=== PATIENT | male | born 1965 | race Caucasian/White ===

== ENCOUNTER 2017-07-19 17:05 | Emergency (ER) | payer SELFPAY ==
--- NOTE | 2017-07-19 17:05 | NUR ---
Pt was brought to ER by [id number] but refused to come in to ER and did not want to be seen in the ER. EMS came to nursing station and stated the pt is in front of ER and refusing to come in. Pt was seen ambulatory next to the ambulance. Myself and Bakari spoke with the pt in [facility] and encouraged him to be seen. Pt stated he just wanted some water because he was thirsty and was provided a bottle of water. Pt denied any medical complaints, any homicidal or suicidal ideation. [facility] [address]
[2017-07-19] MEDS ORDERED: AMBIEN (18:29)
== END 2017-07-19 17:14 | disposition left against medical advice (07) ==
LOC: ER 17:07
DX: Z53.21 Procedure and treatment not carried out due to patient leaving prior to being seen by health care provider (principal)

== ENCOUNTER 2017-07-19 18:18 | Emergency (ER) | payer SELFPAY ==
[~2017-07-19] VITALS: Ht 167.6 cm; Wt 54.4 kg
[2017-07-19] MEDS ORDERED: AMBIEN (18:29)
[2017-07-19] MEDS ORDERED: OLANZAPINE 5 MG TABLET ONE (19:25)
[2017-07-19] MEDS ORDERED: NEOMY/BACITRA/POLYMYXIN B OINT UD PACKET TP ONE ×2 (19:30→20:19)
[2017-07-19] MEDS ORDERED: OLANZAPINE 5 MG TABLET PO ONE (19:30)
--- NOTE | 2017-07-19 19:40 | NUR ---
PT IN ROUTE TO CT IN [facility] WITH TRANSPORTER.
[2017-07-19 19:43] LABS: BASOPHILS % (AUTO) 0.3 % (0.0-2.0); HEMATOCRIT 37.8 % (36.7-47.1); LYMPHOCYTES # (AUTO) 1.4 K/uL (20.0-40.0); LYMPHOCYTES % (AUTO) 12.1 % (20.5-51.5); MEAN CORPUSCULAR HEMOGLOBIN 31.2 uug (23.8-33.4); MEAN CORPUSCULAR HGB CONC 34 g/dL (32.5-36.3); MEAN CORPUSCULAR VOLUME 90.9 fL (73.0-96.2); MONOCYTES # (AUTO) 0.6 K/uL (2.0-10.0); MONOCYTES % (AUTO) 5.5 % (0.0-11.0); NEUTROPHILS # (AUTO) 9.6 K/uL (1.8-8.9); NEUTROPHILS % (AUTO) 82.1 % (38.5-71.5); PLATELET COUNT (AUTO) 324 K/uL (152-348); RED BLOOD CELL COUNT(AUTO) 4.16 MIL/uL (4.06-5.63); WHITE BLOOD COUNT (AUTO) 11.7 K/uL (3.6-10.2)
[2017-07-19 19:49] LABS: CARBON DIOXIDE 24 mmol/L (21-32); CHLORIDE 103 mmol/L (98-107); CREATININE 1.1 mg/dL (0.6-1.3); GLUCOSE 117 mg/dL (74-106); POTASSIUM 3.8 mmol/L (3.5-5.1); UREA NITROGEN, BLOOD 35 mg/dL (7-18)
[2017-07-19 19:53] LABS: ETHANOL < 3 MG/DL (0-0)
[2017-07-19 19:54] LABS: ALANINE AMINOTRANSFERASE 62 U/L (16-63); ALKALINE PHOSPHATASE 102 U/L (50-136); ASPARTATE AMINOTRANSFERASE 56 U/L (15-37); BILIRUBIN,DIRECT 0.1 mg/dL (0.0-0.2); BILIRUBIN,TOTAL 0.5 mg/dL (0.2-1.0); TOTAL PROTEIN, SERUM 8.1 g/dL (6.4-8.2)
[2017-07-19 19:55] LABS: ACETAMINOPHEN < 2.0 ug/mL (10-30)
[2017-07-19 20:04] LABS: THYROID STIMULATING HORMONE 0.856 mIU/mL (0.358-3.740)
--- NOTE | 2017-07-19 22:46 | NUR ---
CALL PLACED TO MAINTENANCE HELPER. WAS TOLD BY TAWNY MORENO TO CALL BACK AFTER MIDNIGHT. SHE IS CURRENTLY OFF. PT IN BED RESTING QUIETLY WITH EYES CLOSED. VSS AND WNL. NO SIGNS OF DISTRESS WITNESSED BY NURSE.
--- NOTE | 2017-07-19 22:55 | NUR ---
SPOKE WITH [facility]. GAVE REPORT OF CASE. HE STATES THAT HE WILL BE HERE "SHORTLY".
--- NOTE | 2017-07-20 00:20 | NUR ---
NEUROLOGY TECHNOLOGIST ART AT BEDSIDE.
--- NOTE | 2017-07-20 00:32 | NUR ---
ACCORDING [employer], PT DOES NOT MEET THE CRITERIA FOR INVOLUNTARY HOLD
--- NOTE | 2017-07-20 02:30 | NUR ---
PT IN BED. PT IS RESTING QUIETLY WITH EYES CLOSED. NO SIGNS/SYMPTOMS OF DISTRESS WITNESSED BY NURSE AT THIS TIME.
[2017-07-20] MEDS ORDERED: LORAZEPAM 1 MG TABLET ONE (04:05)
--- NOTE | 2017-07-20 06:50 | NUR ---
Patient discharged to home in stable conditon. Written and verbal after care instructions given. Patient verbalizes understanding of instructions. Patient able to ambulate with assistance. Patient left with all personal belongings.
[2017-07-20 06:57] VITALS: BP 128/88
== END 2017-07-20 06:50 | disposition home or self-care (01) ==
LOC: ER 18:21
DX: F15.10 Other stimulant abuse, uncomplicated (principal); F32.9 Major depressive disorder, single episode, unspecified
CPT/HCPCS: 36415; 70450; 84443; 85025; A4663; G0480; G0480-TC; J7030